=== PATIENT | male | born 1990 | race American Indian/Alaskan Native ===

== ENCOUNTER 2020-09-15 12:35 | Emergency (ER) | payer SELFPAY ==
[2020-09-15 12:47] VITALS: BP 122/72
--- NOTE | 2020-09-15 12:48 | Emergency Department Report ---
ED ENT HPI - General Stated complaint: TOOTHACHE/FACIAL RT SIDE NUMB Time Seen by Provider: 09/15/20 12:43 Source: patient, RN notes reviewed Limitations: No Limitations - History of Present Illness Initial comments: This is a 30-year-old male nontoxic, well nourished in appearance, no acute signs of distress presents to the ED with c/o of left upper toothache 5 years. Patient denies following up with a dentist. Patient denies any headache. Patient describes toothache as aching level of 6 out of 10. Patient denies any facial swelling. Patient denies any numbness, tingling, fever, chills, hea dache, stiff neck, abdominal pain, chest pain, shortness of breath. Patient denies any drug allergies or significant past medical history. MD complaint: tooth pain -: year(s) Location: tooth # 1 - Pain here Severity: mild Severity scale (0 -10): 3 Quality: aching Consistency: constant Improves with: none Worsens with: none Context- Dental: history of dental caries, poor dental care Associated Symptoms: toothache. denies: fever, cough, gum swelling, pain with swallowing, sore throat, tinnitus, hearing loss, discharge from ear, rhinorrhea - Related Data Previous Rx's Medication Instructions Recorded Last Taken Type Acetaminophen with Codeine 1 each PO Q8H PRN #15 tablet 12/23/14 Unknown Rx [Acetaminophen-Codeine #4 TAB] Penicillin Vk [Veetids TAB] 500 mg PO Q8H #30 tablet 12/23/14 Unknown Rx Allergies Allergy/AdvReac Type Severity Reaction Status Date / Time No Known Allergies Allergy Unverified 12/23/14 13:25 ED Dental HPI - General Stated complaint: TOOTHACHE/FACIAL RT SIDE NUMB Time Seen by Provider: 09/15/20 12:43 - Related Data Previous Rx's Medication Instructions Recorded Last Taken Type Acetaminophen with Codeine 1 each PO Q8H PRN #15 tablet 12/23/14 Unknown Rx [Acetaminophen-Codeine #4 TAB] Penicillin Vk [Veetids TAB] 500 mg PO Q8H #30 tablet 12/23/14 Unknown Rx Allergies Allergy/AdvReac Type Severity Reaction Status Date / Time No Known Allergies Allergy Unverified 12/23/14 13:25 ED Review of Systems ROS: Stated complaint: TOOTHACHE/FACIAL RT SIDE NUMB Other details as noted in HPI Comment: All other systems reviewed and negative Constitutional: denies: chills, fever Eyes: denies: eye pain, eye discharge, vision change ENT: dental pain. denies: ear pain, throat pain Respiratory: denies: cough, shortness of breath, wheezing Cardiovascular: denies: chest pain, palpitations Endocrine: no symptoms reported Gastrointestinal: denies: abdominal pain, nausea, diarrhea Genitourinary: denies: urgency, dysuria Musculoskeletal: denies: back pain, joint swelling, arthralgia Skin: denies: rash, lesions Neurological: denies: headache, weakness, paresthesias Psychiatric: denies: anxiety, depression Hematological/Lymphatic: denies: easy bleeding, easy bruising ED Past Medical Hx - Social History Smoking Status: Never Smoker Substance Use Type: None - Medications Home Medications: Home Medications Medication Instructions Recorded Confirmed Last Taken Type Acetaminophen with Codeine 1 each PO Q8H PRN #15 tablet 12/23/14 Unknown Rx [Acetaminophen-Codeine #4 TAB] Penicillin Vk [Veetids TAB] 500 mg PO Q8H #30 tablet 12/23/14 Unknown Rx ED Physical Exam - General General appearance: alert, in no apparent distress - Head Head exam: Present: atraumatic, normocephalic - Eye Eye exam: Present: normal appearance - Expanded ENT Exam Expanded Ear exam: Present: normal external inspection Mouth exam: Present: normal external inspection, tongue normal. Absent: drooling, trismus, muffled voice Teeth exam: Present: dental caries, other (Uvula midline. No facial swelling. No dental abscess.). Absent: gingival enlargement Throat exam: Positive: normal inspection. Negative: tonsillar erythema, tonsillomegaly, tonsillar exudate, R peritonsillar mass, L peritonsillar mass - Neck Neck exam: Present: normal inspection, full ROM. Absent: tenderness, meningismus, lymphadenopathy - Respiratory Respiratory exam: Absent: respiratory distress - Cardiovascular Cardiovascular Exam: Present: regular rate - Extremities Exam Extremities exam: Present: full ROM - Back Exam Back exam: Present: full ROM - Neurological Exam Neurological exam: Present: alert, oriented X3, normal gait - Psychiatric Psychiatric exam: Present: normal affect, normal mood - Skin Skin exam: Present: warm, dry, intact, normal color. Absent: rash ED Course Vital Signs 09/15/20 12:44 Temperature 98.2 F Pulse Rate 77 Respiratory 16 Rate Blood Pressure 122/72 O2 Sat by Pulse 98 Oximetry - Reevaluation(s) Reevaluation #1: 09/15/20 12:49 Patient is speaking in full sentences with no signs of distress noted. ED Medical Decision Making - Medical Decision Making 30-year-old male that presents with chronic toothache. Patient is stable and was examined by me. There is no abscess noted on exam. Exam is unremarkable. Patient was educated [id number] medications to treat pain as he stated he did not take [id number] medication. Patient was given several referrals to see a dentist follow-up in 3 to 5 days or if symptoms worsen continue to return to emergency room as soon as possible. At time of discharge, the patient does not seem toxic or ill in appearance. No acute signs of distress noted. Patient agrees to discharge treatment plan of care. No further questions noted by the patient. Critical care attestation.: If time is entered above; I have spent that time in minutes in the direct care of this critically ill patient, excluding procedure time. ED Disposition Clinical Impression: Chronic dental pain Disposition: Z- MED SCREENING EXAM-LEFT Is pt being admited?: No Does the pt Need Aspirin: No Condition: Stable Additional Instructions: Follow-up with a dentist referrals that you have been provided today and 3 to 5 days or if symptoms worsen and continue return to emergency room as soon as possible. Referrals: PRIMARY CARE, [Primary Care Provider] - 3-5 Days [facility] [Outside] - 3-5 Days [facility] [Outside] - 3-5 Days Time of Disposition: 12:51
== END 2020-09-15 12:50 | disposition left against medical advice (07) ==
LOC: ED 12:35
DX: K08.89 Other specified disorders of teeth and supporting structures (principal); Z53.21 Procedure and treatment not carried out due to patient leaving prior to being seen by health care provider